=== PATIENT | male | born 1950 | race Caucasian/White ===

== ENCOUNTER → 2018-03-25 | Outpatient (CLI) | payer MEDICARE, OTHER | LOC: COL.RAD 09:03 | DX: M47.812 Spondylosis without myelopathy or radiculopathy, cervical region (principal); M99.71 Connective tissue and disc stenosis of intervertebral foramina of cervical region; M51.34 Other intervertebral disc degeneration, thoracic region; M54.5 Low back pain; Z98.890 Other specified postprocedural states ==